=== PATIENT | male | born 1985 | race African-American/Black ===

== ENCOUNTER 2022-01-09 09:11 | Emergency (ER) | payer MEDICAID ==
[~2022-01-09] VITALS: Ht 182.9 cm; Wt 108.9 kg
[2022-01-09 10:07] LABS: Basophils # (auto) 0 10 ^3/uL (0-0.2); Basophils % (auto) 0.2 % (0.0-2.0); Eosinophils # (auto) 0 10 ^3/uL (0-0.8); Eosinophils % (auto) 0.9 % (0.0-7.0); Hematocrit 48.3 % (41.0-53.0); Hemoglobin 15.8 g/dL (13.5-17.5); Lymphocytes # (auto) 0.9 10 ^3/uL (0.4-5.4); Lymphocytes % (auto) 21.9 % (10.0-50.0); Mean Corpuscular Hemoglobin 27.2 pg (28.0-32.0); Mean Corpuscular Hgb Conc. 32.6 g/dL (32.0-36.0); Mean Corpuscular Volume 83.5 fL (80.0-100.0); Monocytes # (auto) 0.6 10 ^3/uL (0-1.3); Monocytes % (auto) 14.9 % (0.0-12.0); Neutrophils # (auto) 2.7 10 ^3/uL (1.6-8.6); Neutrophils % (auto) 62.1 % (37.0-80.0); Red Blood Cells 5.79 10^6/uL (4.5-5.90); Red Cell Distribution Width 13.3 % (11.8-14.3); White Blood Cell 4.3 10^3/uL (4.4-10.8)
[2022-01-09 10:19] LABS: Albumin 3.8 g/dL (3.4-5.0); Calcium 9.3 mg/dL (8.5-10.1); Potassium 4.4 mmol/L (3.5-5.1)
[2022-01-09 10:31] LABS: BUN/Creatinine Ratio 9.7; Bilirubin, Total 0.8 mg/dL (0.2-1.0); Total Protein 8.1 g/dL (6.4-8.2)
[2022-01-09] MEDS ORDERED: SODIUM CHLORIDE 0.9% 1,000 ML IV ONE (11:15)
[2022-01-09 11:27] VITALS: BP 108/70
[2022-01-09 11:51] LABS: Magnesium 2.1 mg/dL (1.6-2.6)
== END 2022-01-09 12:45 | disposition home or self-care (01) ==
LOC: ER 09:11
DX: K42.9 Umbilical hernia without obstruction or gangrene (principal); J45.909 Unspecified asthma, uncomplicated
CPT/HCPCS: 36415; 71046; 74176; 80053; 83690; 83735; 85025; 96360; 99285; J7030

== ENCOUNTER 2022-08-04 19:14 | Emergency (ER) | payer MEDICAID ==
[~2022-08-04] VITALS: Ht 185.4 cm; Wt 105.0 kg
[2022-08-04 22:51] LABS: Basophils # (auto) 0 10 ^3/uL (0-0.2); Eosinophils # (auto) 0.1 10 ^3/uL (0-0.8); Eosinophils % (auto) 1.9 % (0.0-7.0); Lymphocytes # (auto) 1.8 10 ^3/uL (0.4-5.4); Mean Corpuscular Hemoglobin 26.3 pg (28.0-32.0); Red Blood Cells 5.72 10^6/uL (4.5-5.90)
[2022-08-04 22:53] LABS: Basophils % (auto) 0.6 % (0.0-2.0); Hematocrit 47.9 % (41.0-53.0); Lymphocytes % (auto) 26.9 % (10.0-50.0); Mean Corpuscular Hgb Conc. 31.4 g/dL (32.0-36.0); Mean Corpuscular Volume 83.6 fL (80.0-100.0); Monocytes # (auto) 0.7 10 ^3/uL (0-1.3); Monocytes % (auto) 10.1 % (0.0-12.0); Neutrophils % (auto) 60.5 % (37.0-80.0); Nucleated Red Blood Cells % 0.1 %; White Blood Cell 6.6 10^3/uL (4.4-10.8)
[2022-08-04 23:10] LABS: Albumin 4.1 g/dL (3.4-5.0); CRP High Sensitivity 0.71 mg/dL (< 0.3); Calcium 9.4 mg/dL (8.5-10.1); Potassium 5.1 mmol/L (3.5-5.1)
[2022-08-04 23:14] LABS: BUN/Creatinine Ratio 13.2; Bilirubin, Total 0.7 mg/dL (0.2-1.0); Total Protein 8.3 g/dL (6.4-8.2)
[2022-08-04] MEDS ORDERED: HYDR-4902 PO (23:43)
[2022-08-04] MEDS ORDERED: LEVO500T31 PO (23:43)
[2022-08-05 00:49] VITALS: BP 132/74
== END 2022-08-05 01:19 | disposition home or self-care (01) ==
LOC: ER 19:14
DX: N50.812 Left testicular pain (principal); G89.18 Other acute postprocedural pain; J45.909 Unspecified asthma, uncomplicated
CPT/HCPCS: 36415; 74176; 76870; 80053; 85025; 86141